=== PATIENT | female | born 1995 | race Caucasian/White ===

== ENCOUNTER 2018-09-08 08:29 | Emergency (ER) | payer OTHER ==
[~2018-09-08] VITALS: Ht 165.1 cm; Wt 57.7 kg
[2018-09-08 09:15] LABS: BASO % 0.6 % (0.0-1.0); EOS # 0.1 10^3/uL (0.0-0.50); EOS % 1.3 % (0.0-3.0); HEMATOCRIT 40.3 % (36.0-47.0); HEMOGLOBIN 13.7 g/dl (12.0-15.5); LYMPH # 2.7 10^3/uL (1.5-6.5); LYMPH % 43.4 % (24.0-44.0); MEAN CORPUSCULAR HEMOGLOBIN 31.3 pg (27.0-33.0); MONO # 0.4 10^3/uL (0.0-0.8); MONO % 6.1 % (0.0-5.0); NEUTROPHILS % 48.3 % (36.0-66.0); PLATELET COUNT, AUTOMATED 205 10^3/uL (150-450); RED BLOOD COUNT 4.38 10^6/uL (4.00-5.40); WHITE BLOOD COUNT 6.2 10^3/uL (4.0-10.0)
[2018-09-08 09:20] LABS: APPEARANCE, URINE CLEAR (CLEAR); BACTERIA, URINE AUTO 1+ (NEGATIVE); BILIRUBIN, URINE AUTO NEGATIVE (NEGATIVE); BLOOD, URINE BLOOD NEGATIVE (NEGATIVE); COLOR, URINE STRAW (YELLOW); GLUCOSE, URINE (UA) AUTO NEGATIVE (NEGATIVE); KETONE, URINE AUTO NEGATIVE (NEGATIVE); LEUKOCYTE ESTERASE, URINE AUTO NEGATIVE (NEGATIVE); NITRITE, URINE AUTO NEGATIVE (NEGATIVE); PROTEIN, URINE AUTO NEGATIVE (NEGATIVE); RBC, URINE AUTO 0 /HPF (0-3); SPECIFIC GRAVITY URINE AUTO 1.001 (1.002-1.035); SQUAMOUS EPITHELIAL CELL UR AU 0 /HPF (0-6); UROBILINOGEN, URINE AUTO 0.2 mg/dL (0.0-2.0); WBC, URINE AUTO 0 /HPF (0-3)
[2018-09-08 09:54] LABS: BLOOD UREA NITROGEN 7 MG/DL (7-18); CALCIUM LEVEL 8.7 MG/DL (8.5-10.1); CARBON DIOXIDE LEVEL 23 MEQ/L (21-32); CHLORIDE LEVEL 107 MEQ/L (98-107); CREATININE FOR GFR 0.75 MG/DL (0.55-1.30); GLOMERULAR FILTRATION RATE > 60.0 (>60); GLUCOSE, FASTING 94 MG/DL (70-100); HCG, SERUM QUANTITATIVE 3829 MIU/ML; POTASSIUM SERUM 4.1 MEQ/L (3.5-5.1); SODIUM LEVEL 137 MEQ/L (136-145)
--- NOTE | 2018-09-08 10:45 | REP ---
FIRST TRIMESTER ULTRASOUND: Real-time sonographic evaluation of the pelvis performed utilizing transabdominal and endovaginal technique. Uterus measures 8.3 x 4.0 x 4.7 cm. There is a gestational sac in the endometrial canal with a mean sac diameter of 6 mm corresponding to an estimated gestational age of 5 weeks 2 days. A yolk sac is seen in the gestational sac. No pole is seen at this time. There is no subchorionic hemorrhage. Right ovary measures 1.4 x 1.7 x 2.7 cm. Left ovary measures 3.1 x 2.0 x 1.5 cm. A complex cystic structure in the left ovary probably represents a complex corpus luteum 2.0 x 1.7 x 1.5 cm. There is no evidence of ovarian torsion bilaterally, RI right ovary 0.64 and left ovary 0.58. No free fluid is seen and there is no adnexal mass. IMPRESSION: There appears to be an early intrauterine gestation 5 weeks 2 days age, intrauterine gestational sac noted with a yolk sac. No pole is seen at this time. Recommend followup ultrasound in 10-14 days to document viability. No current evidence of subchorionic hemorrhage. Electronically Signed by Nathaniel Lopez MD 09/10/2018 12:55 P
[2018-09-08] MEDS ORDERED: KEFL500C17 PO (11:30)
[2018-09-08 11:44] VITALS: BP 113/76
== END 2018-09-08 11:46 | disposition home or self-care (01) ==
LOC: M ED 08:29
DX: O20.0 Threatened abortion (principal); O26.891 Other specified pregnancy related conditions, first trimester; O20.8 Other hemorrhage in early pregnancy; O34.81 Maternal care for other abnormalities of pelvic organs, first trimester; Z3A.01 Less than 8 weeks gestation of pregnancy; Z79.899 Other long term (current) drug therapy

== ENCOUNTER → 2018-09-10 | Outpatient (CLI) | payer OTHER ==
[~2018-09-10] MED LIST: KEFL500C17 PO; PREN29CH2 PO
== END ==
LOC: M LAB 09:18
PROVIDERS: ATTEND Obstetrics & Gynecology
DX: O20.0 Threatened abortion (principal)

== ENCOUNTER 2018-09-17 16:02 | Emergency (ER) | payer OTHER ==
[~2018-09-17] VITALS: Ht 165.1 cm; Wt 58.7 kg
[~2018-09-17 16:02] MED LIST changes: -PREN29CH2 PO
[2018-09-17] MEDS ORDERED: PREN29CH2 PO (16:09)
[2018-09-17 16:38] LABS: BASO % 0.4 % (0.0-1.0); EOS # 0.1 10^3/uL (0.0-0.50); HEMOGLOBIN 14.3 g/dl (12.0-15.5); LYMPH # 2.9 10^3/uL (1.5-6.5); LYMPH % 37.4 % (24.0-44.0); MEAN CORPUSCULAR HEMOGLOBIN 31.4 pg (27.0-33.0); MEAN CORPUSCULAR VOLUME 92.3 fl (80.0-96.0); MONO # 0.6 10^3/uL (0.0-0.8); NEUTROPHILS # 4.1 10^3/uL (1.8-7.7); NEUTROPHILS % 53.1 % (36.0-66.0); PLATELET COUNT, AUTOMATED 208 10^3/uL (150-450); RED BLOOD COUNT 4.55 10^6/uL (4.00-5.40); WHITE BLOOD COUNT 7.7 10^3/uL (4.0-10.0)
[2018-09-17 17:18] LABS: BLOOD UREA NITROGEN 9 MG/DL (7-18); CALCIUM LEVEL 8.9 MG/DL (8.5-10.1); CARBON DIOXIDE LEVEL 29 MEQ/L (21-32); CHLORIDE LEVEL 107 MEQ/L (98-107); CREATININE FOR GFR 0.71 MG/DL (0.55-1.30); GLOMERULAR FILTRATION RATE > 60.0 (>60); GLUCOSE, FASTING 95 MG/DL (70-100); HCG, SERUM QUANTITATIVE 5872 MIU/ML; POTASSIUM SERUM 4.1 MEQ/L (3.5-5.1); SODIUM LEVEL 140 MEQ/L (136-145)
--- NOTE | 2018-09-17 18:51 | REPVR ---
EXAM: US , Transvaginal EXAM DATE/TIME: 09/17/2018 6:12 PM CLINICAL HISTORY: 23 years old, female; Lmp or gestational age (in weeks): 6w4d; Antepartum complications; Bleeding; ; Additional info: Vag bleding/cramping TECHNIQUE: Imaging protocol: Real-time transvaginal obstetrical ultrasound of the maternal pelvis and a first trimester with image documentation. Transvaginal imaging was used for better evaluation of the fetus and adnexa. COMPARISON: CT ABD PELVIS WITH CONTRAST 07/21/2015 5:52 AM FINDINGS: GESTATION: Gestation: Single gestational sac demonstrated within the uterus located in the lower uterine segment. Decidual reaction is not well formed. Yolk sac measures 7.7 mm larger than typically demonstrated at this gestational age. pole measures 5.3 mm. Heart rate: heart rate is bradycardic at 81 beats per minute. BIOMETRY: Estimated gestational age: Gestational age based on crown-rump length measurement is 6 weeks 1 days versus 6 weeks 4 days using LMP of 08/02/2018. IMPRESSION: Bradycardic heart rate demonstrated a fetus measuring at 6 weeks 4 days using crown-rump length. Abnormally enlarged yolk sac. Low position of the gestational sac within the endometrial cavity. Findings are worrisome or impending failure. Continued interval followup suggested based on clinical evaluation. Electronically signed by: Adalid Perez On 09/17/2018 18:50:54 PM
[2018-09-17 20:19] VITALS: BP 137/84
== END 2018-09-17 20:20 | disposition home or self-care (01) ==
LOC: M ED 16:02
DX: O20.0 Threatened abortion (principal); Z3A.01 Less than 8 weeks gestation of pregnancy